=== PATIENT | female | born 1950 | race Two or more races ===

== ENCOUNTER 2021-04-06 12:20 | Inpatient (IN) | payer MEDICARE, MEDICAID ==
[~2021-04-06] VITALS: Ht 165.1 cm; Wt 51.3 kg
[~2021-04-06 12:20] MED LIST: ETOMIDATE 2MG/ML 10ML VIAL IV ONE; SODIUM CHLORIDE 0.9% 10ML VIAL ONE; VECURONIUM BROMIDE 10 MG/VIAL IV ONE
[2021-04-06] MEDS ORDERED: NOREPINEPHRINE 8 MG in DEXT 5% WATER 242 ML IV STA (12:39)
[2021-04-06] MEDS ORDERED: FENTANYL CITRATE/PF 500 MCG in SODIUM CHLORIDE 0.9% 40 ML IV STA (12:41)
[2021-04-06] MEDS ORDERED: VANCOMYCIN 1G PREMIX 200 ML IV ONE (12:45)
[2021-04-06] MEDS ORDERED: SODIUM CHLORIDE 0.9% 1000ML BAG (SEPSIS BOLUS) IV ONE (12:45)
[2021-04-06] MEDS ORDERED: PIPERACILLIN/TAZ 3.375G PREMIX 50 ML IV ONE (12:45)
[2021-04-06] MEDS ORDERED: MIDAZOLAM 100MG/100ML PMX 100 ML IV PRN (12:45)
[2021-04-06] MEDS ORDERED: FENTANYL CITRATE 2,500 MCG in SODIUM CHLORIDE 0.9% 200 ML IV NR (13:00)
[2021-04-06] MEDS ORDERED: NOREPINEPHRINE 8 MG in DEXT 5% WATER 242 ML IV NR (13:00)
[2021-04-06 13:04] LABS: BG BASE EXCESS -10.9 mmol/L (-2.0-2.0); BG CARBOXYHEMOGLOBIN 0.6 % (0.5-1.5); BG DEOXYHEMOGLOBIN 2.1 % (0.0-5.0); BG HCO3 ACT 17.7 mmol/L (22.0-26.0); BG OXYGEN SATURATION 97.9 % (92.0-98.5); BG OXYHEMOGLOBIN 97.3 % (94.0-97.0); BG PCO2 49.4 mmHg (35.0-45.0); BG PH 7.172 (7.350-7.450); BG PO2 143.7 mmHg (75.0-100.0); BG SAMPLE SITE RIGHT FEMORAL; BG TOTAL HEMOGLOBIN 15.2 g/dL (12.0-18.0); BG VENT MODE VENT - AC
[2021-04-06 13:06] LABS: HEMATOCRIT. 49.3 % (36.0-48.0); HEMOGLOBIN. 15.7 g/dL (12.0-16.0); LYMPHOCYTES % 10.1 % (20.0-50.0); MEAN CORPUSCULAR HEMOGLOBIN 31.1 pg (28.0-32.0); MEAN CORPUSCULAR VOLUME 97.9 fL (81.0-99.0); MONOCYTES % 2.1 % (2.0-8.0); NEUTROPHILS % 87.8 % (40.0-76.0); PLATELET 216 x1000/uL (130-400); RED BLOOD CELL COUNT 5.04 mill/uL (4.2-5.4); RED CELL DISTRIBUTION WIDTH 13.2 % (11.6-14.6)
[2021-04-06 13:11] LABS: INR 1.1; PROTHROMBIN TIME 11.9 sec (9.6-11.0)
[2021-04-06 13:19] LABS: CHLORIDE 94 mEq/L (98-107)
[2021-04-06 14:55] LABS: CLARITY URINE TURBID (CLEAR); KETONES URINE TRACE (NEGATIVE); LEUKOCYTE ESTERASE URINE 1+ (NEGATIVE); NITRITE URINE NEGATIVE (NEGATIVE); OCCULT BLOOD URINE 3+ (NEGATIVE); PH URINE 5.5 (4.5-8.0); PROTEIN URINE 3+ (NEGATIVE); SPECIFIC GRAVITY URINE 1.021 (1.005-1.030)
[2021-04-06 14:57] LABS: COLOR URINE AMBER (YELLOW)
[2021-04-06] MEDS ORDERED: CLONIDINE 0.1MG TABLET PO PRN (17:15)
[2021-04-06] MEDS ORDERED: GUAIFENESIN 200MG/10ML SUGAR FREE UDC PO PRN (17:15)
[2021-04-06] MEDS: DEXT 5%/0.45% NACL 1000ML 1,000 ML IV SCH (17:15)
[2021-04-06] MEDS ORDERED: ENOXAPARIN 40MG/0.4ML SYR SUBCUT SCH (17:15)
[2021-04-06] MEDS ORDERED: NOREPINEPHRINE 8 MG in DEXT 5% WATER 242 ML IV PRN ×2 (17:15)
[2021-04-06] MEDS ORDERED: PIPERACILLIN/TAZ 3.375G PREMIX 50 ML IV SCH (17:15)
[2021-04-06] MEDS ORDERED: DOCUSATE SODIUM 100MG CAPSULE PO PRN (17:15)
[2021-04-06] MEDS ORDERED: SODIUM CHLORIDE 0.9% 1,000 ML IV NR (17:15)
[2021-04-06] MEDS ORDERED: ACETAMINOPHEN 325MG TABLET PO PRN (17:15)
[2021-04-06] MEDS ORDERED: NITROGLYCERIN 0.4MG TABLET SL SL PRN (17:15)
[2021-04-06] MEDS ORDERED: MAGNESIUM/ALUMINUM HYDROXIDE/SIMETHICONE 30ML UDC PO PRN (17:15)
[2021-04-06 18:24] LABS: BG BASE EXCESS -1.4 mmol/L (-2.0-2.0); BG CARBOXYHEMOGLOBIN 0.1 % (0.5-1.5); BG DEOXYHEMOGLOBIN 6.9 % (0.0-5.0); BG HCO3 ACT 23.5 mmol/L (22.0-26.0); BG METHEMOGLOBIN 0.3 % (0.0-1.5); BG OXYGEN SATURATION 93.1 % (92.0-98.5); BG OXYHEMOGLOBIN 92.7 % (94.0-97.0); BG PCO2 40.6 mmHg (35.0-45.0); BG PH 7.381 (7.350-7.450); BG PO2 68.6 mmHg (75.0-100.0); BG SAMPLE SITE RIGHT FEMORAL; BG TOTAL HEMOGLOBIN 16.5 g/dL (12.0-18.0); BG VENT MODE VENT - AC
[2021-04-06] MEDS: ENOXAPARIN 30MG/0.3ML SYR SUBCUT SCH (18:43)
[2021-04-06] MEDS ORDERED: PIPERACILLIN/TAZOBACTAM 3.375 G in DEXTROSE 5% WATER 50 ML IV SCH ×2 (21:00→22:00)
[2021-04-06] MEDS ORDERED: PIPERACILLIN/TAZ 3.375G PREMIX 50 ML IV NR (21:15)
[2021-04-06] MEDS ORDERED: PHENYLEPHRINE 100 MG in DEXT 5% WATER 240 ML IV PRN (21:15)
[2021-04-06] MEDS ORDERED: SODIUM CHLORIDE 0.9% 1,000 ML IV ONE (21:15)
[2021-04-06] MEDS: ACETAMINOPHEN 325MG TABLET PO PRN (21:39)
[2021-04-06] MEDS: IPRATROPIUM/ALBUTEROL 0.5-3(2.5)MG/3ML NEB HHN SCH (22:10)
[2021-04-07 00:25] LABS: VITAMIN B12 SERUM 879 pg/mL (211-911)
[2021-04-07] MEDS: IPRATROPIUM/ALBUTEROL 0.5-3(2.5)MG/3ML NEB HHN SCH ×6 (00:25→20:14)
[2021-04-07 00:26] LABS: FOLIC ACID (FOLATE) SERUM > 20.00 ng/mL (>5.38)
[2021-04-07] MEDS: VASOPRESSIN 20 UNIT in SODIUM CHLORIDE 0.9% 99 ML IV PRN ×2 (03:04→03:40)
[2021-04-07] MEDS: DEXT 5%/0.45% NACL 1000ML 1,000 ML IV SCH ×3 (03:15→23:47)
[2021-04-07 06:42] LABS: HEMATOCRIT. 45.4 % (36.0-48.0); MEAN CORPUSCULAR HEMOGLOBIN 31.7 pg (28.0-32.0); MEAN CORPUSCULAR VOLUME 96.4 fL (81.0-99.0); MEAN PLATELET VOLUME 10.8 fl (7.4-10.4); PLATELET 122 x1000/uL (130-400); RED BLOOD CELL COUNT 4.72 mill/uL (4.2-5.4)
[2021-04-07 06:49] LABS: CHLORIDE 96 mEq/L (98-107)
[2021-04-07 06:54] LABS: PHOSPHORUS 4.6 mg/dL (2.5-4.9)
[2021-04-07] MEDS ORDERED: ALBUMIN HUMAN 25GM/100ML (25%) IV SCH (08:00)
[2021-04-07 08:34] LABS: BG BASE EXCESS -1.4 mmol/L (-2.0-2.0); BG CARBOXYHEMOGLOBIN 0.6 % (0.5-1.5); BG DEOXYHEMOGLOBIN 0.6 % (0.0-5.0); BG FRACTION INSPIRED OXYGEN 100; BG HCO3 ACT 24.9 mmol/L (22.0-26.0); BG METHEMOGLOBIN 0.9 % (0.0-1.5); BG OXYGEN SATURATION 99.4 % (92.0-98.5); BG OXYHEMOGLOBIN 97.9 % (94.0-97.0); BG PCO2 47.9 mmHg (35.0-45.0); BG PH 7.334 (7.350-7.450); BG PO2 190.7 mmHg (75.0-100.0); BG SAMPLE SITE LEFT RADIAL; BG TOTAL HEMOGLOBIN 14.1 g/dL (12.0-18.0); BG VENT MODE VENT - AC
[2021-04-07] MEDS: PANTOPRAZOLE SODIUM 40 MG/VIAL IV SCH (09:14)
[2021-04-07] MEDS: PIPERACILLIN/TAZOBACTAM 3.375 G in DEXTROSE 5% WATER 50 ML IV SCH ×2 (09:28→21:55)
[2021-04-07 09:55] LABS: PLATELET ESTIMATE DECREASED
[2021-04-07] MEDS: ASPIRIN 325MG EC TABLET PO SCH ×2 (10:47→12:00)
[2021-04-07 11:44] LABS: *AMPHETAMINES SCREEN URINE NEGATIVE (NEGATIVE); *BARBITURATES SCREEN URINE NEGATIVE (NEGATIVE); *BENZODIAZEPINES SCREEN URINE PRESUMTIVE POSITIVE (NEGATIVE); *COCAINE SCREEN URINE NEGATIVE (NEGATIVE); CANNABINOID URINE SCREEN NEGATIVE (NEGATIVE); METHADONE URINE SCREEN NEGATIVE (NEGATIVE); OPIATES URINE SCREEN NEGATIVE (NEGATIVE); PHENCYCLIDINE URINE SCREEN NEGATIVE (NEGATIVE)
[2021-04-07] MEDS: ENOXAPARIN 30MG/0.3ML SYR SUBCUT SCH (18:00)
[2021-04-08] VITALS (113 sets, daily range): BP systolic 63–193; BP diastolic 36–95
[2021-04-08] MEDS: IPRATROPIUM/ALBUTEROL 0.5-3(2.5)MG/3ML NEB HHN SCH ×6 (00:52→20:22)
[2021-04-08] MEDS: DEXT 5%/0.45% NACL 1000ML 1,000 ML IV SCH (03:40)
[2021-04-08] MEDS ORDERED: VASOPRESSIN 20 UNIT in SODIUM CHLORIDE 0.9% 99 ML IV PRN (03:45)
[2021-04-08] MEDS ORDERED: SENN-257 PO (04:34)
[2021-04-08] MEDS ORDERED: BISA10SU62 RC (04:34)
[2021-04-08] MEDS ORDERED: POLY17PO3 MT (04:34)
[2021-04-08] MEDS: NOREPINEPHRINE 32 MG in DEXT 5% WATER 218 ML IV PRN (05:48)
[2021-04-08 07:55] LABS: BG BASE EXCESS -0.3 mmol/L (-2.0-2.0); BG CARBOXYHEMOGLOBIN 0.3 % (0.5-1.5); BG DEOXYHEMOGLOBIN 2.2 % (0.0-5.0); BG FRACTION INSPIRED OXYGEN 40; BG HCO3 ACT 23.2 mmol/L (22.0-26.0); BG METHEMOGLOBIN 0.3 % (0.0-1.5); BG OXYGEN SATURATION 97.8 % (92.0-98.5); BG OXYHEMOGLOBIN 97.2 % (94.0-97.0); BG PCO2 34.5 mmHg (35.0-45.0); BG PH 7.446 (7.350-7.450); BG PO2 99.6 mmHg (75.0-100.0); BG SAMPLE SITE RIGHT RADIAL; BG TOTAL HEMOGLOBIN 13.6 g/dL (12.0-18.0); BG TOTAL RESPIRATORY RATE 22 b/min; BG VENT MODE VENT - AC
[2021-04-08] MEDS ORDERED: KCL 10MEQ/50ML PREMIX 50 ML IV SCH (08:00)
[2021-04-08] MEDS: ENOXAPARIN 30MG/0.3ML SYR SUBCUT SCH (08:11)
[2021-04-08] MEDS: PANTOPRAZOLE SODIUM 40 MG/VIAL IV SCH (08:29)
[2021-04-08] MEDS: PIPERACILLIN/TAZOBACTAM 3.375 G in DEXTROSE 5% WATER 50 ML IV SCH ×2 (08:33→21:10)
[2021-04-08 08:40] LABS: HEMATOCRIT. 36.7 % (36.0-48.0); HEMOGLOBIN. 12.2 g/dL (12.0-16.0); MEAN CORPUSCULAR HEMOGLOBIN 31.8 pg (28.0-32.0); MEAN CORPUSCULAR VOLUME 95.7 fL (81.0-99.0); MEAN PLATELET VOLUME 11.1 fl (7.4-10.4); PLATELET 85 x1000/uL (130-400); RED BLOOD CELL COUNT 3.84 mill/uL (4.2-5.4); RED CELL DISTRIBUTION WIDTH 12.6 % (11.6-14.6)
[2021-04-08 08:48] LABS: PHOSPHORUS 3.7 mg/dL (2.5-4.9)
[2021-04-08] MEDS: ASPIRIN 325MG EC TABLET PO SCH (09:00)
[2021-04-08 09:05] LABS: PLATELET ESTIMATE DECREASED
[2021-04-08] MEDS ORDERED: POTASSIUM CHLORIDE 20MEQ/PACKET PO SCH (10:45)
[2021-04-08] MEDS ORDERED: VANCOMYCIN 1G PREMIX 200 ML IV SCH (11:00)
[2021-04-08] MEDS ORDERED: KCL 20MEQ/100ML PREMIX 100 ML IV SCH (12:00)
[2021-04-08] MEDS: DEXT 5%/0.9% NACL KCL 20MEQ/L 1,000 ML IV SCH ×2 (12:54→21:17)
[2021-04-08] MEDS: KCL 20MEQ/100ML PREMIX 100 ML IV SCH ×2 (12:55→14:12)
[2021-04-08] MEDS: PHENYLEPHRINE 100 MG in DEXT 5% WATER 240 ML IV PRN (13:45)
[2021-04-08] MEDS ORDERED: VANCOMYCIN 750MG PREMIX 150 ML IV SCH (14:00)
[2021-04-08] MEDS ORDERED: FENTANYL CITRATE/PF 500 MCG in SODIUM CHLORIDE 0.9% 40 ML IV PRN (14:15)
[2021-04-08] MEDS ORDERED: MIDAZOLAM 100MG/100ML PMX 100 ML IV PRN (14:15)
[2021-04-08 19:25] LABS: CHLORIDE 100 mEq/L (98-107)
[2021-04-09] VITALS (58 sets, daily range): BP systolic 85–149; BP diastolic 52–96
[2021-04-09] MEDS: IPRATROPIUM/ALBUTEROL 0.5-3(2.5)MG/3ML NEB HHN SCH ×6 (00:14→20:08)
[2021-04-09] MEDS: NOREPINEPHRINE 32 MG in DEXT 5% WATER 218 ML IV PRN (00:17)
[2021-04-09] MEDS: PHENYLEPHRINE 100 MG in DEXT 5% WATER 240 ML IV PRN ×2 (01:36→13:55)
[2021-04-09 06:19] LABS: HEMATOCRIT. 37.5 % (36.0-48.0); HEMOGLOBIN. 12.4 g/dL (12.0-16.0); MEAN CORPUSCULAR HEMOGLOBIN 31.4 pg (28.0-32.0); MEAN CORPUSCULAR VOLUME 94.8 fL (81.0-99.0); MEAN PLATELET VOLUME 11.1 fl (7.4-10.4); PLATELET 78 x1000/uL (130-400); RED BLOOD CELL COUNT 3.96 mill/uL (4.2-5.4)
[2021-04-09 06:25] LABS: CHLORIDE 111 mEq/L (98-107)
[2021-04-09 06:35] LABS: PHOSPHORUS 2.8 mg/dL (2.5-4.9)
[2021-04-09] MEDS: DEXT 5%/0.9% NACL KCL 20MEQ/L 1,000 ML IV SCH (07:00)
[2021-04-09] MEDS: FENTANYL CITRATE/PF 2,500 MCG in SODIUM CHLORIDE 0.9% 200 ML IV PRN (09:03)
[2021-04-09] MEDS: MIDAZOLAM HCL 100 MG in SODIUM CHLORIDE 0.9% 80 ML IV PRN (09:08)
[2021-04-09] MEDS: ASPIRIN 325MG EC TABLET PO SCH (09:45)
[2021-04-09] MEDS: PIPERACILLIN/TAZOBACTAM 3.375 G in DEXTROSE 5% WATER 50 ML IV SCH ×2 (09:45→20:31)
[2021-04-09] MEDS: PANTOPRAZOLE SODIUM 40 MG/VIAL IV SCH (09:45)
[2021-04-09 10:17] LABS: PLATELET ESTIMATE DECREASED
[2021-04-09] MEDS ORDERED: VANCOMYCIN 750 MG in DEXT 5% WATER 250 ML IV SCH (16:00)
[2021-04-09] MEDS: ACETAMINOPHEN 325MG TABLET PO PRN (20:32)
[2021-04-10] VITALS (69 sets, daily range): BP systolic 56–192; BP diastolic 36–128
[2021-04-10] MEDS: IPRATROPIUM/ALBUTEROL 0.5-3(2.5)MG/3ML NEB HHN SCH ×6 (00:12→21:30)
[2021-04-10] MEDS: NOREPINEPHRINE 32 MG in DEXT 5% WATER 218 ML IV PRN (03:12)
[2021-04-10] MEDS: DEXT 5%/0.9% NACL KCL 20MEQ/L 1,000 ML IV SCH ×2 (03:13→14:00)
[2021-04-10] MEDS: VASOPRESSIN 20 UNIT in SODIUM CHLORIDE 0.9% 99 ML IV PRN (03:47)
[2021-04-10] MEDS ORDERED: AMIODARONE HCL 150 MG in DEXT 5% WATER 100 ML IV NR (04:00)
[2021-04-10] MEDS ORDERED: AMIODARONE HCL 900 MG in DEXT 5% WATER 482 ML IV PRN (04:00)
[2021-04-10] MEDS: PHENYLEPHRINE 100 MG in DEXT 5% WATER 240 ML IV PRN (05:50)
[2021-04-10] MEDS: ASPIRIN 325MG EC TABLET PO SCH (09:00)
[2021-04-10] MEDS: PANTOPRAZOLE SODIUM 40 MG/VIAL IV SCH (09:32)
[2021-04-10] MEDS: PIPERACILLIN/TAZOBACTAM 3.375 G in DEXTROSE 5% WATER 50 ML IV SCH (09:34)
[2021-04-10] MEDS: VANCOMYCIN 750 MG in DEXT 5% WATER 250 ML IV SCH (12:00)
[2021-04-10 16:12] LABS: BASOPHILS % 0.1 % (0.0-2.0); EOSINOPHILS % 0.4 % (0.0-5.0); HEMATOCRIT. 36.3 % (36.0-48.0); HEMOGLOBIN. 11.6 g/dL (12.0-16.0); LYMPHOCYTES % 7.7 % (20.0-50.0); MEAN CORPUSCULAR VOLUME 96.9 fL (81.0-99.0); MEAN PLATELET VOLUME 10.1 fl (7.4-10.4); MONOCYTES % 5.5 % (2.0-8.0); NEUTROPHILS % 86.3 % (40.0-76.0); PLATELET 69 x1000/uL (130-400); RED BLOOD CELL COUNT 3.75 mill/uL (4.2-5.4); RED CELL DISTRIBUTION WIDTH 13.6 % (11.6-14.6)
[2021-04-10] MEDS: MEROPENEM 1000MG in NORMAL SALINE 100ML IV SCH (17:00)
[2021-04-11] VITALS (96 sets, daily range): BP systolic 57–144; BP diastolic 25–105
[2021-04-11] MEDS: DEXT 5%/0.9% NACL KCL 20MEQ/L 1,000 ML IV SCH ×3 (00:56→19:54)
[2021-04-11] MEDS: IPRATROPIUM/ALBUTEROL 0.5-3(2.5)MG/3ML NEB HHN SCH ×7 (00:57→20:37)
[2021-04-11] MEDS: MEROPENEM 1000MG in NORMAL SALINE 100ML IV SCH ×2 (05:17→17:49)
[2021-04-11] MEDS: VANCOMYCIN 750 MG in DEXT 5% WATER 250 ML IV SCH (05:17)
[2021-04-11 06:31] LABS: CHLORIDE 124 mEq/L (98-107)
[2021-04-11] MEDS: PANTOPRAZOLE SODIUM 40 MG/VIAL IV SCH (08:24)
[2021-04-11] MEDS: ASPIRIN 325MG EC TABLET PO SCH (08:24)
[2021-04-11 09:10] LABS: BG BASE EXCESS -0.8 mmol/L (-2.0-2.0); BG CARBOXYHEMOGLOBIN 0.2 % (0.5-1.5); BG DEOXYHEMOGLOBIN 1.6 % (0.0-5.0); BG FRACTION INSPIRED OXYGEN 35; BG HCO3 ACT 22.3 mmol/L (22.0-26.0); BG METHEMOGLOBIN 0.2 % (0.0-1.5); BG OXYGEN SATURATION 98.4 % (92.0-98.5); BG PCO2 31.5 mmHg (35.0-45.0); BG PH 7.467 (7.350-7.450); BG PO2 125.5 mmHg (75.0-100.0); BG SAMPLE SITE RIGHT RADIAL; BG TOTAL HEMOGLOBIN 11.3 g/dL (12.0-18.0); BG VENT MODE VENT - AC
[2021-04-11 12:33] LABS: HEPATITIS B SURFACE ANTIGEN NEGATIVE
[2021-04-11] MEDS: PHENYLEPHRINE 100 MG in DEXT 5% WATER 240 ML IV PRN (12:53)
[2021-04-11] MEDS: FENTANYL CITRATE/PF 2,500 MCG in SODIUM CHLORIDE 0.9% 200 ML IV PRN (12:54)
[2021-04-11] MEDS ORDERED: INFLUENZA VACCINE 05/PF 0.5 ML SYRINGE IM ONE (17:15)
[2021-04-11] MEDS ORDERED: VANCOMYCIN 750 MG in DEXT 5% WATER 250 ML IV SCH (18:00)
[2021-04-11] MEDS: MIDAZOLAM HCL 100 MG in SODIUM CHLORIDE 0.9% 80 ML IV PRN (18:47)
[2021-04-12] VITALS (97 sets, daily range): BP systolic 100–154; BP diastolic 28–108
[2021-04-12] MEDS: IPRATROPIUM/ALBUTEROL 0.5-3(2.5)MG/3ML NEB HHN SCH ×5 (00:34→19:55)
[2021-04-12] MEDS: DEXT 5%/0.9% NACL KCL 20MEQ/L 1,000 ML IV SCH ×2 (05:31→15:33)
[2021-04-12] MEDS: MEROPENEM 1000MG in NORMAL SALINE 100ML IV SCH ×2 (05:32→17:41)
[2021-04-12 06:02] LABS: HEMATOCRIT. 30.8 % (36.0-48.0); HEMOGLOBIN. 10.3 g/dL (12.0-16.0); MEAN CORPUSCULAR HEMOGLOBIN 32.6 pg (28.0-32.0); MEAN CORPUSCULAR VOLUME 97.8 fL (81.0-99.0); MEAN PLATELET VOLUME 10.1 fl (7.4-10.4); RED BLOOD CELL COUNT 3.15 mill/uL (4.2-5.4); RED CELL DISTRIBUTION WIDTH 12.8 % (11.6-14.6)
[2021-04-12 06:16] LABS: CHLORIDE 127 mEq/L (98-107)
[2021-04-12 08:28] LABS: BG BASE EXCESS -8.1 mmol/L (-2.0-2.0); BG CARBOXYHEMOGLOBIN 0.3 % (0.5-1.5); BG DEOXYHEMOGLOBIN 2.3 % (0.0-5.0); BG FRACTION INSPIRED OXYGEN 30; BG HCO3 ACT 15.6 mmol/L (22.0-26.0); BG METHEMOGLOBIN 0.3 % (0.0-1.5); BG OXYGEN SATURATION 97.7 % (92.0-98.5); BG OXYHEMOGLOBIN 97.1 % (94.0-97.0); BG PCO2 26.7 mmHg (35.0-45.0); BG PH 7.385 (7.350-7.450); BG PO2 112.9 mmHg (75.0-100.0); BG SAMPLE SITE RIGHT RADIAL; BG TOTAL HEMOGLOBIN 10.5 g/dL (12.0-18.0); BG VENT MODE VENT - AC
[2021-04-12] MEDS: PANTOPRAZOLE SODIUM 40 MG/VIAL IV SCH (08:48)
[2021-04-12] MEDS: ASPIRIN 325MG EC TABLET PO SCH (08:48)
[2021-04-12] MEDS: IPRATROPIUM/ALBUTEROL 0.5-3(2.5)MG/3ML NEB NEB PRN (08:57)
[2021-04-12 14:59] LABS: PLATELET ESTIMATE MARKEDLY DECREASED
[2021-04-12 15:00] LABS: PLATELET 32 x1000/uL (130-400)
[2021-04-12] MEDS: PHENYLEPHRINE 100 MG in DEXT 5% WATER 240 ML IV PRN (15:59)
[2021-04-13] VITALS (76 sets, daily range): BP systolic 92–156; BP diastolic 42–124
[2021-04-13] MEDS: IPRATROPIUM/ALBUTEROL 0.5-3(2.5)MG/3ML NEB HHN SCH ×7 (00:05→20:14)
[2021-04-13] MEDS: MIDAZOLAM HCL 100 MG in SODIUM CHLORIDE 0.9% 80 ML IV PRN (00:23)
[2021-04-13] MEDS: DEXT 5%/0.9% NACL KCL 20MEQ/L 1,000 ML IV SCH (01:25)
[2021-04-13] MEDS: MEROPENEM 1000MG in NORMAL SALINE 100ML IV SCH ×2 (05:28→18:06)
[2021-04-13 06:14] LABS: HEMATOCRIT. 31.8 % (36.0-48.0); HEMOGLOBIN. 10.2 g/dL (12.0-16.0); MEAN CORPUSCULAR HEMOGLOBIN 31.2 pg (28.0-32.0); MEAN CORPUSCULAR VOLUME 97.7 fL (81.0-99.0); MEAN PLATELET VOLUME 9.6 fl (7.4-10.4); PLATELET 128 x1000/uL (130-400); RED BLOOD CELL COUNT 3.25 mill/uL (4.2-5.4); RED CELL DISTRIBUTION WIDTH 13.1 % (11.6-14.6)
[2021-04-13 06:20] LABS: CHLORIDE 130 mEq/L (98-107)
[2021-04-13] MEDS: ASPIRIN 325MG EC TABLET PO SCH (08:27)
[2021-04-13] MEDS: PANTOPRAZOLE SODIUM 40 MG/VIAL IV SCH (08:27)
[2021-04-13 08:46] LABS: PLATELET ESTIMATE SLIGHTLY DECREASED
[2021-04-13 10:04] LABS: BG BASE EXCESS -3.1 mmol/L (-2.0-2.0); BG CARBOXYHEMOGLOBIN 0.3 % (0.5-1.5); BG DEOXYHEMOGLOBIN 3.6 % (0.0-5.0); BG FRACTION INSPIRED OXYGEN 30; BG HCO3 ACT 20.7 mmol/L (22.0-26.0); BG METHEMOGLOBIN 0.2 % (0.0-1.5); BG OXYGEN SATURATION 96.4 % (92.0-98.5); BG OXYHEMOGLOBIN 95.9 % (94.0-97.0); BG PCO2 32.7 mmHg (35.0-45.0); BG PO2 88.4 mmHg (75.0-100.0); BG SAMPLE SITE RIGHT RADIAL; BG TOTAL HEMOGLOBIN 10.2 g/dL (12.0-18.0); BG VENT MODE VENT - AC
[2021-04-13 12:15] LABS: BG BASE EXCESS -4.7 mmol/L (-2.0-2.0); BG CARBOXYHEMOGLOBIN 0.2 % (0.5-1.5); BG DEOXYHEMOGLOBIN 2.8 % (0.0-5.0); BG FRACTION INSPIRED OXYGEN 30; BG METHEMOGLOBIN 0.4 % (0.0-1.5); BG OXYGEN SATURATION 97.2 % (92.0-98.5); BG OXYHEMOGLOBIN 96.6 % (94.0-97.0); BG PCO2 30.3 mmHg (35.0-45.0); BG PH 7.415 (7.350-7.450); BG PO2 104.8 mmHg (75.0-100.0); BG SAMPLE SITE RIGHT BRACHIAL; BG TOTAL HEMOGLOBIN 10.2 g/dL (12.0-18.0); BG TOTAL RESPIRATORY RATE 33 b/min; BG VENT MODE VENT - CPAP
[2021-04-13] MEDS: DEXT 5%/0.45% NACL KCL 20MEQ/L 1,000 ML IV SCH ×2 (14:23→21:53)
[2021-04-13] MEDS: METOCLOPRAMIDE HCL 10MG/2ML VIAL IV SCH (18:06)
[2021-04-14] VITALS (78 sets, daily range): BP systolic 109–179; BP diastolic 44–97
[2021-04-14] MEDS: METOCLOPRAMIDE HCL 10MG/2ML VIAL IV SCH ×5 (00:26→23:56)
[2021-04-14] MEDS: IPRATROPIUM/ALBUTEROL 0.5-3(2.5)MG/3ML NEB HHN SCH ×6 (00:51→20:55)
[2021-04-14] MEDS: MEROPENEM 1000MG in NORMAL SALINE 100ML IV SCH ×2 (05:51→18:21)
[2021-04-14] MEDS: THIAMINE HCL 100MG TABLET PO SCH (09:00)
[2021-04-14] MEDS: FOLIC ACID 1MG TABLET PO SCH (09:00)
[2021-04-14] MEDS: ZINC SULFATE 220 MG ( 50 ) CAPSULE PO SCH (09:00)
[2021-04-14] MEDS: ASCORBIC ACID 500 MG TABLET PO SCH (09:00)
[2021-04-14] MEDS: ASPIRIN 325MG EC TABLET PO SCH (09:00)
[2021-04-14] MEDS: DEXT 5%/0.45% NACL KCL 20MEQ/L 1,000 ML IV SCH ×2 (09:02→18:22)
[2021-04-14] MEDS ORDERED: NA PHOS,M-B/NA PHOS,DI-BA ENEMA 118ML PR SCH (11:15)
[2021-04-14 11:26] LABS: HEMATOCRIT. 31.9 % (36.0-48.0); HEMOGLOBIN. 10.1 g/dL (12.0-16.0); MEAN CORPUSCULAR HEMOGLOBIN 31.4 pg (28.0-32.0); MEAN CORPUSCULAR VOLUME 99.1 fL (81.0-99.0); MEAN PLATELET VOLUME 9.5 fl (7.4-10.4); PLATELET 162 x1000/uL (130-400); RED BLOOD CELL COUNT 3.22 mill/uL (4.2-5.4); RED CELL DISTRIBUTION WIDTH 13.2 % (11.6-14.6)
[2021-04-14] MEDS: PANTOPRAZOLE SODIUM 40 MG/VIAL IV SCH (11:28)
[2021-04-14 11:33] LABS: CHLORIDE 124 mEq/L (98-107)
[2021-04-14 12:33] LABS: PLATELET ESTIMATE NORMAL
[2021-04-15] VITALS (64 sets, daily range): BP systolic 103–163; BP diastolic 52–102
[2021-04-15] MEDS: IPRATROPIUM/ALBUTEROL 0.5-3(2.5)MG/3ML NEB HHN SCH ×6 (00:31→20:12)
[2021-04-15 03:33] LABS: HEMATOCRIT. 30.9 % (36.0-48.0); HEMOGLOBIN. 10.3 g/dL (12.0-16.0); MEAN CORPUSCULAR HEMOGLOBIN 32.4 pg (28.0-32.0); MEAN CORPUSCULAR VOLUME 97.3 fL (81.0-99.0); PLATELET 195 x1000/uL (130-400); RED BLOOD CELL COUNT 3.18 mill/uL (4.2-5.4); RED CELL DISTRIBUTION WIDTH 12.7 % (11.6-14.6)
[2021-04-15 03:45] LABS: CHLORIDE 124 mEq/L (98-107)
[2021-04-15] MEDS: DEXT 5%/0.45% NACL KCL 20MEQ/L 1,000 ML IV SCH ×2 (04:00→13:19)
[2021-04-15] MEDS: METOCLOPRAMIDE HCL 10MG/2ML VIAL IV SCH ×3 (06:00→18:11)
[2021-04-15] MEDS: MEROPENEM 1000MG in NORMAL SALINE 100ML IV SCH ×2 (06:00→18:11)
[2021-04-15] MEDS: THIAMINE HCL 100MG TABLET PO SCH (09:05)
[2021-04-15] MEDS: PANTOPRAZOLE SODIUM 40 MG/VIAL IV SCH (09:05)
[2021-04-15] MEDS: ASPIRIN 325MG EC TABLET PO SCH (09:05)
[2021-04-15] MEDS: FOLIC ACID 1MG TABLET PO SCH (09:05)
[2021-04-15] MEDS: ZINC SULFATE 220 MG ( 50 ) CAPSULE PO SCH (09:05)
[2021-04-15] MEDS: ASCORBIC ACID 500 MG TABLET PO SCH (09:05)
[2021-04-15 10:49] LABS: PLATELET ESTIMATE NORMAL
[2021-04-15] MEDS ORDERED: SODIUM POLYSTYRENE SULFONATE 15 G/60 ML BOT PO NR (21:00)
[2021-04-16] VITALS (13 sets, daily range): BP systolic 94–117; BP diastolic 48–66
[2021-04-16] MEDS: METOCLOPRAMIDE HCL 10MG/2ML VIAL IV SCH ×5 (00:18→23:07)
[2021-04-16] MEDS: IPRATROPIUM/ALBUTEROL 0.5-3(2.5)MG/3ML NEB HHN SCH ×7 (00:26→23:58)
[2021-04-16] MEDS: MEROPENEM 1000MG in NORMAL SALINE 100ML IV SCH ×2 (05:50→18:14)
[2021-04-16 06:39] LABS: CHLORIDE 119 mEq/L (98-107)
[2021-04-16 07:02] LABS: MEAN CORPUSCULAR HEMOGLOBIN 32.9 pg (28.0-32.0); MEAN CORPUSCULAR VOLUME 95.8 fL (81.0-99.0); PLATELET 201 x1000/uL (130-400); RED BLOOD CELL COUNT 3.03 mill/uL (4.2-5.4); RED CELL DISTRIBUTION WIDTH 12.8 % (11.6-14.6)
[2021-04-16] MEDS: ZINC SULFATE 220 MG ( 50 ) CAPSULE PO SCH (08:56)
[2021-04-16] MEDS: ASCORBIC ACID 500 MG TABLET PO SCH (08:56)
[2021-04-16] MEDS: FOLIC ACID 1MG TABLET PO SCH (08:56)
[2021-04-16] MEDS: PANTOPRAZOLE SODIUM 40 MG/VIAL IV SCH (08:56)
[2021-04-16] MEDS: THIAMINE HCL 100MG TABLET PO SCH (08:56)
[2021-04-16] MEDS ORDERED: ASPIRIN 325MG TABLET PO SCH (09:00)
[2021-04-16 14:50] LABS: PLATELET ESTIMATE NORMAL
[2021-04-16] MEDS: ONDANSETRON HCL 4MG/2ML INJ IV PRN ×2 (14:51→23:07)
[2021-04-17] VITALS (12 sets, daily range): BP systolic 96–113; BP diastolic 48–76
[2021-04-17] MEDS: IPRATROPIUM/ALBUTEROL 0.5-3(2.5)MG/3ML NEB HHN SCH ×2 (03:51→09:30)
[2021-04-17] MEDS: METOCLOPRAMIDE HCL 10MG/2ML VIAL IV SCH ×2 (05:17→12:16)
[2021-04-17] MEDS: MEROPENEM 1000MG in NORMAL SALINE 100ML IV SCH ×2 (05:18→17:24)
[2021-04-17 10:53] LABS: CHLORIDE 118 mEq/L (98-107)
[2021-04-17] MEDS: DEXT 5%/0.9% NACL KCL 20MEQ/L 1,000 ML IV SCH ×2 (12:15→22:09)
[2021-04-17] MEDS: THIAMINE HCL 100MG TABLET PO SCH (12:16)
[2021-04-17] MEDS: FOLIC ACID 1MG TABLET PO SCH (12:16)
[2021-04-17] MEDS: ZINC SULFATE 220 MG ( 50 ) CAPSULE PO SCH (12:16)
[2021-04-17] MEDS: PANTOPRAZOLE SODIUM 40 MG/VIAL IV SCH (12:16)
[2021-04-17] MEDS: ASCORBIC ACID 500 MG TABLET PO SCH (12:17)
[2021-04-17] MEDS ORDERED: DIATR MEGLU/DIATRIZOATE SOLN 30ML PO SCH (16:15)
[2021-04-17] MEDS ORDERED: IOHEXOL-300 100 ML BOTTLE ONE (21:12)
[2021-04-18] VITALS (12 sets, daily range): BP systolic 96–128; BP diastolic 55–63
[2021-04-18] MEDS: MEROPENEM 1000MG in NORMAL SALINE 100ML IV SCH ×2 (04:32→17:44)
[2021-04-18] MEDS: DEXT 5%/0.9% NACL KCL 20MEQ/L 1,000 ML IV SCH ×3 (04:32→20:13)
[2021-04-18 07:46] LABS: BASOPHILS % 0.5 % (0.0-2.0); EOSINOPHILS % 0.7 % (0.0-5.0); HEMATOCRIT. 29.7 % (36.0-48.0); LYMPHOCYTES % 8.3 % (20.0-50.0); MEAN CORPUSCULAR HEMOGLOBIN 32.3 pg (28.0-32.0); MEAN CORPUSCULAR VOLUME 95.8 fL (81.0-99.0); MEAN PLATELET VOLUME 9.3 fl (7.4-10.4); MONOCYTES % 5.5 % (2.0-8.0); PLATELET 257 x1000/uL (130-400); RED CELL DISTRIBUTION WIDTH 12.8 % (11.6-14.6)
[2021-04-18] MEDS: ASPIRIN 81MG TABLET PO SCH (08:53)
[2021-04-18] MEDS: PANTOPRAZOLE SODIUM 40 MG/VIAL IV SCH (08:53)
[2021-04-18] MEDS: ZINC SULFATE 220 MG ( 50 ) CAPSULE PO SCH (08:53)
[2021-04-18] MEDS: FOLIC ACID 1MG TABLET PO SCH (08:53)
[2021-04-18] MEDS: ASCORBIC ACID 500 MG TABLET PO SCH (08:53)
[2021-04-18] MEDS: THIAMINE HCL 100MG TABLET PO SCH (08:54)
[2021-04-18 09:27] LABS: CHLORIDE 123 mEq/L (98-107)
[2021-04-19] VITALS (12 sets, daily range): BP systolic 104–140; BP diastolic 55–80
[2021-04-19] MEDS: DEXT 5%/0.9% NACL KCL 20MEQ/L 1,000 ML IV SCH (05:08)
[2021-04-19 06:39] LABS: EOSINOPHILS % 0.8 % (0.0-5.0); HEMATOCRIT. 33.3 % (36.0-48.0); LYMPHOCYTES % 14.4 % (20.0-50.0); MEAN CORPUSCULAR HEMOGLOBIN 32.4 pg (28.0-32.0); MEAN CORPUSCULAR VOLUME 98.3 fL (81.0-99.0); MEAN PLATELET VOLUME 10.3 fl (7.4-10.4); MONOCYTES % 6.9 % (2.0-8.0); NEUTROPHILS % 76.9 % (40.0-76.0); PLATELET 276 x1000/uL (130-400); RED BLOOD CELL COUNT 3.39 mill/uL (4.2-5.4)
[2021-04-19 07:17] LABS: CHLORIDE 126 mEq/L (98-107)
[2021-04-19] MEDS: PANTOPRAZOLE SODIUM 40 MG/VIAL IV SCH (08:12)
[2021-04-19] MEDS: MEROPENEM 1000MG in NORMAL SALINE 100ML IV SCH ×2 (08:39→18:42)
[2021-04-19] MEDS: IPRATROPIUM/ALBUTEROL 0.5-3(2.5)MG/3ML NEB NEB PRN (08:53)
[2021-04-19] MEDS: ASPIRIN 81MG TABLET PO SCH (09:00)
[2021-04-19] MEDS: FOLIC ACID 1MG TABLET PO SCH (09:00)
[2021-04-19] MEDS: ASCORBIC ACID 500 MG TABLET PO SCH (09:00)
[2021-04-19] MEDS: ZINC SULFATE 220 MG ( 50 ) CAPSULE PO SCH (09:00)
[2021-04-19] MEDS: THIAMINE HCL 100MG TABLET PO SCH (09:00)
[2021-04-19] MEDS ORDERED: DIATR MEGLU/DIATRIZOATE SOLN 120ML ONE (10:04)
[2021-04-19] MEDS: DEXT 5% WATER + KCL 20MEQ/L 1,000 ML IV SCH ×2 (12:01→21:49)
[2021-04-19] MEDS: METOCLOPRAMIDE HCL 10MG/2ML VIAL IV SCH (23:32)
[2021-04-20] VITALS (12 sets, daily range): BP systolic 111–133; BP diastolic 59–77
[2021-04-20] MEDS: MEROPENEM 1000MG in NORMAL SALINE 100ML IV SCH ×2 (05:01→17:59)
[2021-04-20] MEDS: DEXT 5% WATER + KCL 20MEQ/L 1,000 ML IV SCH ×4 (05:02→21:25)
[2021-04-20] MEDS: METOCLOPRAMIDE HCL 10MG/2ML VIAL IV SCH ×4 (05:16→23:13)
[2021-04-20] MEDS: PANTOPRAZOLE SODIUM 40 MG/VIAL IV SCH (09:53)
[2021-04-20 09:54] LABS: BASOPHILS % 0.9 % (0.0-2.0); EOSINOPHILS % 0.9 % (0.0-5.0); HEMATOCRIT. 34.9 % (36.0-48.0); HEMOGLOBIN. 11.3 g/dL (12.0-16.0); MEAN CORPUSCULAR HEMOGLOBIN 31.9 pg (28.0-32.0); MEAN PLATELET VOLUME 9.8 fl (7.4-10.4); MONOCYTES % 7.5 % (2.0-8.0); NEUTROPHILS % 74.7 % (40.0-76.0); PLATELET 249 x1000/uL (130-400); RED BLOOD CELL COUNT 3.53 mill/uL (4.2-5.4); RED CELL DISTRIBUTION WIDTH 13.2 % (11.6-14.6)
[2021-04-20] MEDS: DOCUSATE SODIUM SUGAR FREE 100MG/10ML UDC NG SCH ×2 (09:54→17:00)
[2021-04-20] MEDS: ASCORBIC ACID 500 MG TABLET PO SCH (09:54)
[2021-04-20] MEDS: ZINC SULFATE 220 MG ( 50 ) CAPSULE PO SCH (09:54)
[2021-04-20] MEDS: ASPIRIN 81MG TABLET PO SCH (09:54)
[2021-04-20] MEDS: FOLIC ACID 1MG TABLET PO SCH (09:54)
[2021-04-20] MEDS: THIAMINE HCL 100MG TABLET PO SCH (09:54)
[2021-04-20 09:58] LABS: CHLORIDE 120 mEq/L (98-107)
[2021-04-20] MEDS: LACTULOSE 20G/30ML UDC PO SCH (12:00)
[2021-04-21] VITALS (12 sets, daily range): BP systolic 93–117; BP diastolic 48–82
[2021-04-21] MEDS: DEXT 5% WATER + KCL 20MEQ/L 1,000 ML IV SCH ×4 (02:49→23:49)
[2021-04-21] MEDS: MEROPENEM 1000MG in NORMAL SALINE 100ML IV SCH ×2 (05:48→17:29)
[2021-04-21] MEDS: IPRATROPIUM/ALBUTEROL 0.5-3(2.5)MG/3ML NEB NEB PRN (07:48)
[2021-04-21] MEDS: LACTULOSE 20G/30ML UDC PO SCH (08:00)
[2021-04-21] MEDS: ASPIRIN 81MG TABLET PO SCH (08:00)
[2021-04-21] MEDS: PANTOPRAZOLE SODIUM 40 MG/VIAL IV SCH (08:00)
[2021-04-21] MEDS: DOCUSATE SODIUM SUGAR FREE 100MG/10ML UDC NG SCH ×2 (08:00→17:00)
[2021-04-21] MEDS: ZINC SULFATE 220 MG ( 50 ) CAPSULE PO SCH (08:01)
[2021-04-21] MEDS: ASCORBIC ACID 500 MG TABLET PO SCH ×2 (08:01→13:45)
[2021-04-21] MEDS: METOCLOPRAMIDE HCL 10MG/2ML VIAL IV SCH ×4 (11:41→23:51)
[2021-04-21] MEDS: FERROUS SULFATE 325MG TABLET PO SCH (17:30)
[2021-04-22] VITALS (11 sets, daily range): BP systolic 90–124; BP diastolic 50–74
[2021-04-22] MEDS: DEXT 5% WATER + KCL 20MEQ/L 1,000 ML IV SCH (06:24)
[2021-04-22] MEDS: METOCLOPRAMIDE HCL 10MG/2ML VIAL IV SCH ×4 (06:24→23:23)
[2021-04-22] MEDS: MEROPENEM 1000MG in NORMAL SALINE 100ML IV SCH ×2 (06:24→18:11)
[2021-04-22] MEDS: ASPIRIN 81MG TABLET PO SCH (08:36)
[2021-04-22] MEDS: ASCORBIC ACID 500 MG TABLET PO SCH (08:36)
[2021-04-22] MEDS: FERROUS SULFATE 325MG TABLET PO SCH ×2 (08:36→18:11)
[2021-04-22] MEDS: ZINC SULFATE 220 MG ( 50 ) CAPSULE PO SCH (08:36)
[2021-04-22] MEDS: PANTOPRAZOLE SODIUM 40 MG/VIAL IV SCH (08:36)
[2021-04-22] MEDS: DOCUSATE SODIUM SUGAR FREE 100MG/10ML UDC NG SCH (08:41)
[2021-04-22] MEDS: LACTULOSE 20G/30ML UDC PO SCH (08:41)
[2021-04-22] MEDS ORDERED: LACTULOSE 20G/30ML UDC PO PRN (10:45)
[2021-04-22] MEDS ORDERED: DOCUSATE SODIUM SUGAR FREE 100MG/10ML UDC NG PRN (10:45)
[2021-04-23] VITALS (13 sets, daily range): BP systolic 103–135; BP diastolic 51–69
[2021-04-23] MEDS: MEROPENEM 1000MG in NORMAL SALINE 100ML IV SCH ×2 (05:27→17:55)
[2021-04-23] MEDS: METOCLOPRAMIDE HCL 10MG/2ML VIAL IV SCH ×4 (05:27→23:33)
[2021-04-23] MEDS: PANTOPRAZOLE SODIUM 40 MG/VIAL IV SCH (08:08)
[2021-04-23] MEDS: FERROUS SULFATE 325MG TABLET PO SCH ×2 (08:08→17:54)
[2021-04-23] MEDS: ZINC SULFATE 220 MG ( 50 ) CAPSULE PO SCH (08:08)
[2021-04-23] MEDS: ASCORBIC ACID 500 MG TABLET PO SCH (08:08)
[2021-04-23] MEDS: ASPIRIN 81MG TABLET PO SCH (08:08)
[2021-04-24] VITALS (12 sets, daily range): BP systolic 101–115; BP diastolic 56–71
[2021-04-24] MEDS: METOCLOPRAMIDE HCL 10MG/2ML VIAL IV SCH ×4 (05:16→23:00)
[2021-04-24] MEDS: MEROPENEM 1000MG in NORMAL SALINE 100ML IV SCH ×2 (05:16→18:02)
[2021-04-24] MEDS: FERROUS SULFATE 325MG TABLET PO SCH ×2 (08:28→18:02)
[2021-04-24] MEDS: ASPIRIN 81MG TABLET PO SCH (08:28)
[2021-04-24] MEDS: PANTOPRAZOLE SODIUM 40 MG/VIAL IV SCH (08:28)
[2021-04-24] MEDS: ASCORBIC ACID 500 MG TABLET PO SCH (08:28)
[2021-04-24] MEDS: ZINC SULFATE 220 MG ( 50 ) CAPSULE PO SCH (08:28)
[2021-04-24] MEDS: ENOXAPARIN 40MG/0.4ML SYR SUBCUT SCH (12:30)
[2021-04-25] VITALS (8 sets, daily range): BP systolic 108–132; BP diastolic 64–77
[2021-04-25] MEDS: METOCLOPRAMIDE HCL 10MG/2ML VIAL IV SCH ×2 (05:17→13:24)
[2021-04-25 06:09] LABS: BASOPHILS % 0.5 % (0.0-2.0); EOSINOPHILS % 0.9 % (0.0-5.0); HEMATOCRIT. 28.2 % (36.0-48.0); HEMOGLOBIN. 9.6 g/dL (12.0-16.0); LYMPHOCYTES % 25.2 % (20.0-50.0); MEAN CORPUSCULAR HEMOGLOBIN 32.1 pg (28.0-32.0); MEAN CORPUSCULAR VOLUME 94.5 fL (81.0-99.0); MEAN PLATELET VOLUME 9.2 fl (7.4-10.4); MONOCYTES % 13.9 % (2.0-8.0); NEUTROPHILS % 59.5 % (40.0-76.0); PLATELET 236 x1000/uL (130-400); RED BLOOD CELL COUNT 2.98 mill/uL (4.2-5.4); RED CELL DISTRIBUTION WIDTH 12.3 % (11.6-14.6)
[2021-04-25 06:19] LABS: CHLORIDE 105 mEq/L (98-107)
[2021-04-25] MEDS: FERROUS SULFATE 325MG TABLET PO SCH (08:58)
[2021-04-25] MEDS: ASPIRIN 81MG TABLET PO SCH (08:59)
[2021-04-25] MEDS: ENOXAPARIN 40MG/0.4ML SYR SUBCUT SCH (08:59)
[2021-04-25] MEDS: ASCORBIC ACID 500 MG TABLET PO SCH (08:59)
[2021-04-25] MEDS: PANTOPRAZOLE SODIUM 40 MG/VIAL IV SCH (08:59)
[2021-04-25] MEDS: ZINC SULFATE 220 MG ( 50 ) CAPSULE PO SCH (08:59)
[2021-04-25] MEDS ORDERED: POTASSIUM CHLORIDE 20MEQ TABLET SR PO NR (10:30)
== END 2021-04-25 15:30 | DRG 720 ==
LOC: ER 12:20 → EDBEDREQ 15:09 → EDBEDREQTM 15:09 → EDBEDREQSVC 15:09 → MICUSO 15:43 → CVICU 04-08 01:52 → 5EST 04-15 21:05
PROVIDERS: ADMIT Internal Medicine; ATTEND Internal Medicine
PROC: 5A1955Z Respiratory Ventilation, Greater than 96 Consecutive Hours (ICD-10-PCS; principal; 2021-04-06)
PROC: 06HY33Z Insertion of Infusion Device into Lower Vein, Percutaneous Approach (ICD-10-PCS; 2021-04-06)
PROC: B54BZZA Ultrasonography of Right Lower Extremity Veins, Guidance (ICD-10-PCS; 2021-04-06)
PROC: 0BH17EZ Insertion of Endotracheal Airway into Trachea, Via Natural or Artificial Opening (ICD-10-PCS; 2021-04-06)
DX: A41.51 Sepsis due to Escherichia coli [E. coli] (principal); N17.0 Acute kidney failure with tubular necrosis; J69.0 Pneumonitis due to inhalation of food and vomit; R65.21 Severe sepsis with septic shock; J96.01 Acute respiratory failure with hypoxia; J96.02 Acute respiratory failure with hypercapnia; R57.0 Cardiogenic shock; I21.4 Non-ST elevation (NSTEMI) myocardial infarction; E43 Unspecified severe protein-calorie malnutrition; K56.609 Unspecified intestinal obstruction, unspecified as to partial versus complete obstruction; G92.8 Other toxic encephalopathy; I11.0 Hypertensive heart disease with heart failure; I50.23 Acute on chronic systolic (congestive) heart failure; E87.2 Acidosis; F31.9 Bipolar disorder, unspecified; R73.9 Hyperglycemia, unspecified; F25.9 Schizoaffective disorder, unspecified; J44.0 Chronic obstructive pulmonary disease with (acute) lower respiratory infection; Y95 Nosocomial condition; I49.3 Ventricular premature depolarization; E87.6 Hypokalemia; L89.156 Pressure-induced deep tissue damage of sacral region; D69.6 Thrombocytopenia, unspecified; R74.01 Elevation of levels of liver transaminase levels; E87.0 Hyperosmolality and hypernatremia; L89.150 Pressure ulcer of sacral region, unstageable; J32.0 Chronic maxillary sinusitis; K56.7 Ileus, unspecified; Z20.822 Contact with and (suspected) exposure to COVID-19; K85.90 Acute pancreatitis without necrosis or infection, unspecified; E61.1 Iron deficiency; F03.90 Unspecified dementia, unspecified severity, without behavioral disturbance, psychotic disturbance, mood disturbance, and anxiety; Z68.1 Body mass index [BMI] 19.9 or less, adult
CPT/HCPCS: 36415; 36600; 71045; 74018; 74177; 74250; 80048; 80053; 80076; 80202; 80305; 81003; 82040; 82375; 82607; 82746; 82805; 83036; 83540; 83550; 83605; 83735; 83880; 84100; 84134; 84145; 84443; 84484; 85025; 85044; 86705; 86709; 86803; 87070; 87077; 87186; 87340; 87426; 92610; 93005; 93306; 93970; 94002; 94003; 94640; 99291; A6261; C1893; C9113; J0282; J1650; J2185; J2250; J2370; J2405; J2543; J2765; J3010; J3370; J3480; J3490; J7030; J7040; J7050; J7060; P9047; Q9963; Q9967; A4315